=== PATIENT | female | born 1965 | race American Indian/Alaskan Native ===

== ENCOUNTER 2018-07-10 06:02 | Day surgery (SDC) | payer OTHER ==
--- NOTE | 2018-07-10 07:48 | CP.SDSHP ---
Same Day Surgery H & P - History Proposed Procedure: EGD Pre-Op Diagnosis: SEE NOTES - Previous Medical/Surgical History Endocrine/Metabolic: Thyroid Disease, Diabetes Misc: Other Pain: 4.Moderate Pain - Allergies Allergies: Allergies No Known Allergies Allergy (Verified 07/10/18 06:35) - Physical Exam General Appearance: N Vital Signs: Vital Signs 07/10/18 06:36 Temperature 97 F L Pulse Rate 61 Respiratory 18 Rate Blood Pressure 118/75 O2 Sat by Pulse 97 Oximetry Mental Status: Alert & Oriented x3 Neuro: WNL Heart: WNL Lungs: WNL GI: Other - {Optional Preform as Required} Breast: WNL Abdomen: Other Rectal: Other Integument: WNL : WNL Ortho: Other ENT: WNL - Impression Pt. Evaluated Today:Candidate for Anesthesia & Procedure: Yes - Date & Time Time: 07:48 Short Stay Discharge - Short Stay Discharge Admitting Diagnosis/Reason for Visit: DYSPEPSIA Disposition: HOME/ ROUTINE
[2018-07-10] MEDS ORDERED: Pantoprazole 40 mg EC Tab PO ONE (08:30)
[2018-07-10] MEDS ORDERED: Belladonna-Phenobarbital PO ONE (08:40)
[2018-07-10] MEDS ORDERED: Propofol 10 mg/ml Inj (20 ML) ONE (08:44)
[2018-07-10] MEDS ORDERED: Lactated Ringer's 500 ML IV SCH (08:45)
[2018-07-10] MEDS ORDERED: Lactated Ringer's 1,000 ML IV ONE (08:45)
[2018-07-10 09:24] VITALS: O2SAT 100
[2018-07-10 11:03] VITALS: BP 100/61; PULSE 70; RESP 16; TEMP 97.4
== END 2018-07-10 10:00 | disposition home or self-care (01) ==
LOC: C.ENDO 06:02
PROVIDERS: ATTEND Specialist
DX: K30 Functional dyspepsia (principal); K44.9 Diaphragmatic hernia without obstruction or gangrene; K20.9 Esophagitis, unspecified
CPT/HCPCS: 43239; 82948; 84703; 88305; J2704; J7120